=== PATIENT | male | born 1980 | race Caucasian/White ===

== ENCOUNTER → 2021-09-30 | Outpatient (CLI) | payer BC, OTHER ==
[~2021-09-30] MED LIST: ASPIRIN EC81 M1; FISH OIL 1,0001 EAC5; FLOMAX; PERCOCET 7.5-51 EACH; ZOFRAN4 MG
== END ==
LOC: SJCVCIMAG 07:44 → SJCVC 13:22 → SJCVCIMAG 15:26
PROVIDERS: ATTEND Internal Medicine Cardiovascular Disease
DX: I34.0 Nonrheumatic mitral (valve) insufficiency (principal); I25.10 Atherosclerotic heart disease of native coronary artery without angina pectoris

== ENCOUNTER → 2021-11-06 | Outpatient (CLI) | payer OTHER | LOC: CAT 16:19 | PROVIDERS: ATTEND Internal Medicine Cardiovascular Disease | DX: Z13.6 Encounter for screening for cardiovascular disorders (principal); I25.10 Atherosclerotic heart disease of native coronary artery without angina pectoris; E78.00 Pure hypercholesterolemia, unspecified ==